=== PATIENT | female | born 1970 | race African-American/Black ===

== ENCOUNTER 2019-08-22 02:04 | Inpatient (IN) | payer OTHER ==
[~2019-08-22] VITALS: Ht 160 cm; Wt 48.6 kg
[2019-08-22 06:10] VITALS: BP 157/93
--- NOTE | 2019-08-22 06:15 | NUR ---
SCARFER OPERATORMASTER [place] NOTES PATIENT ARRIVED ON UNIT AT 0600 VIA AMBULANCE FROM [facility]. PATIENT IN STABLE CONDITION. A/O X2-3. ON ROOM AIR. TELE MONITOR READING SINUS RHYTHM, HEART RATE 99. IV PRESENT ON RIGHT WRIST, SIZE 20, INTACT & PATENT, HEP LOCKED. PATIENT IS UNCOOPERATIVE, ANXIOUS, AND ANGRY. REFUSED SKIN ASSESSMENT AND REFUSED TO SIGN BELONGINGS LIST. PATIENT ALSO REFUSES TO GIVE ANY MEDICAL INFORMATION. MEDICAL HISTORY OBTAINED FROM RECORDS. SAFETY MEASURES IN PLACE. BED LOCKED, SIDE RAILS X2, CALL LIGHT WITHIN REACH. WILL ENDORSE TO DAY SHIFT NURSE ADMISSION
--- NOTE | 2019-08-22 07:30 | NUR ---
Tele/RN Opening/New admission Received patient alert and oriented, able to responds all stimuli. Pt on ekg monitor tech Patient noticed incorporative, angry, agitated, yelling and uses inappropriate words to staff. Refused initial physical assess, past medical hx, blood draw for hep A and B, troponin, skin assess. Medical hx obtained from medical record. Safety measure in place, bed locked, side rails up x 2, call light within reach, will continue to monitor.
[2019-08-22] MEDS ORDERED: ASPI-1152 PO (07:47)
[2019-08-22] MEDS ORDERED: ATOR40TA PO (07:47)
[2019-08-22] MEDS ORDERED: ACET-2605 PO (07:47)
[2019-08-22] MEDS ORDERED: CHOL200076 PO (07:47)
[2019-08-22] MEDS ORDERED: FERR325T23 PO (07:47)
[2019-08-22] MEDS ORDERED: CLON0.3P TD (07:47)
[2019-08-22] MEDS ORDERED: QUET100T PO (07:48)
[2019-08-22] MEDS ORDERED: MULT-24 PO (07:48)
[2019-08-22] MEDS ORDERED: LISI40TA4 PO (07:48)
[2019-08-22] MEDS ORDERED: NIFE-34 PO (07:48)
[2019-08-22] MEDS ORDERED: HYDR100T27 PO (07:48)
[2019-08-22] MEDS ORDERED: SEVE800T8 PO (07:48)
[2019-08-22] MEDS ORDERED: GABA-532 PO (07:48)
[2019-08-22] MEDS ORDERED: ALBU8.5H8 IH (07:55)
[2019-08-22 08:00] VITALS: BP 157/118
[2019-08-22] MEDS ORDERED: ONDANSETRON HCL/PF 4 MG/2 ML VIAL IVP PRN (08:00)
[2019-08-22] MEDS ORDERED: NITROGLYCERIN 0.4 MG/TAB BOTTLE SL PRN (08:00)
[2019-08-22] MEDS ORDERED: ONDANSETRON 4 MG TAB.RAPDIS PO PRN (08:30)
--- NOTE | 2019-08-22 08:30 | NUR ---
Dr. Plasencia made aware pt's bp 157/118, who will place meds for bp.
[2019-08-22] MEDS: ASPIRIN 81 MG TAB.CHEW PO SCH (08:50)
[2019-08-22] MEDS: MORPHINE SULFATE INJ 2 MG/ML DISP.SYRIN IV PRN ×2 (09:48→17:35)
[2019-08-22] MEDS ORDERED: CLONIDINE HCL 0.3 MG/24H PTWK 1 EA PATCH TD SCH (10:30)
[2019-08-22] MEDS ORDERED: ALBUTEROL FS 2.5 MG/3 ML VIAL.NEB NEB PRN (10:30)
[2019-08-22] MEDS ORDERED: ACETAMINOPHEN ES 500 MG TABLET PO PRN (10:30)
[2019-08-22] MEDS ORDERED: ASPIRIN EC 81 MG TABLET.DR PO SCH (10:30)
--- NOTE | 2019-08-22 10:45 | NUR ---
All due meds at 1030 will hold by HD nurse indication.
[2019-08-22] MEDS: QUETIAPINE FUMARATE 100 MG TABLET PO SCH ×2 (11:19→17:22)
--- NOTE | 2019-08-22 12:00 | NUR ---
Patient done HD, no fever, or N/V, i9n stable condition. bp-150/ 94, p-90. Addendum: 08/22/19 at 1804 by RUDDY MCCORD RN Error
--- NOTE | 2019-08-22 12:00 | NUR ---
Patient done HD, no fever, or N/V, in stable condition. bp-150/ 94, p-90.
[2019-08-22] MEDS: GABAPENTIN 100 MG CAPSULE PO SCH ×2 (12:32→17:22)
[2019-08-22] MEDS: MULTIVITAMINS,THERAGRAN 1 UDTAB TABLET PO SCH (12:32)
[2019-08-22] MEDS: SEVELAMER CARBONATE 800 MG TABLET PO SCH ×2 (12:32→17:22)
[2019-08-22] MEDS: CHOLECALCIFEROL 1,000 UNIT TABLET (VIT D3) PO SCH (12:32)
[2019-08-22] MEDS: FERROUS SULFATE (325 MG) 325 MG/TAB TABLET PO SCH (12:32)
[2019-08-22] MEDS: LISINOPRIL (20MG) 20 MG TABLET PO SCH (13:35)
[2019-08-22] MEDS: hydrALAZINE HCL 50 MG TABLET PO SCH ×2 (14:14→21:13)
[2019-08-22 16:00] VITALS: BP 140/89
[2019-08-22] MEDS: NIFEdipine XL 60 MG TAB PO SCH (17:22)
[2019-08-22] MEDS ORDERED: ATORVASTATIN 40 MG TABLET PO SCH (18:00)
--- NOTE | 2019-08-22 18:05 | NUR ---
Tele/RN Closing note Patient in bed comfortably, c/o back pain given pain meds as prn order. NO found abnormal from job honer. Respiratory even and unlabored in room air, skin is warm to touch, intact IV site. Safety measure in place, bed locked, side rails up x 2, call light within reach, will endorse trial consultant.
[2019-08-22 20:32] VITALS: BP 151/103
[2019-08-23 02:27] VITALS: BP 148/95
[2019-08-23] MEDS: MORPHINE SULFATE INJ 2 MG/ML DISP.SYRIN IV PRN ×3 (05:24→17:31)
[2019-08-23 05:52] VITALS: BP 151/98
--- NOTE | 2019-08-23 06:26 | NUR ---
SLAB LIFTING SUPERVISOR NOTES AWAKE & RESPONSIVE. NOT IN ANY DISTRESS. NO SOB NOTED. DENIES ANY PAIN OR DISCOMFORT AT THIS TIME. ON TELE SR @ 84 WITH IV-HL PATENT & INTACT. MONITORED ACCORDINGLY. CALL LIGHT WITHIN REACH. BED IN LOWEST POSITION. SR UP X 2 FOR SAFETY. WILL ENDORSE TO NEXT SHIFT.
[2019-08-23 07:23] LABS: BASOPHILS % (AUTO) 1.2 % (0.0-2.0); EOSINOPHILS % (AUTO) 7.6 % (0.0-6.0); HEMATOCRIT 31 % (33-45); HEMOGLOBIN 9.8 g/dL (11.5-14.8); LYMPHOCYTES % (AUTO) 24.3 % (20.0-44.0); MEAN CORPUSCULAR HGB CONC 32 g/dl (31.0-36.0); MEAN CORPUSCULAR VOLUME 89 fL (82-100); MONOCYTES # (AUTO) 0.6 /CMM (0.1-1.30); MONOCYTES % (AUTO) 14.7 % (2.0-12.0); NEUTROPHILS # (AUTO) 2.2 /CMM (1.8-8.9); NEUTROPHILS % (AUTO) 52.2 % (43.0-81.0); PLATELET COUNT (AUTO) 249 /CMM (150-450); RED BLOOD CELL COUNT(AUTO) 3.46 MIL/uL (4.0-5.2); WHITE BLOOD COUNT (AUTO) 4.3 K/uL (4.3-11.0)
--- NOTE | 2019-08-23 07:48 | NUR ---
TELE/RN OPENING NOTES RECEIVED PATIENT AWAKE & RESPONSIVE. NOT IN ANY DISTRESS. NO SOB NOTED. DENIES ANY PAIN OR DISCOMFORT AT THIS TIME. ON TELE SR 84 WITH IV-HL PATENT & INTACT. MONITORED ACCORDINGLY. CALL LIGHT WITHIN REACH. BED IN LOWEST POSITION. SR UP X 2 FOR SAFETY. WILL CONTINUE TO MONITOR.
[2019-08-23 07:57] LABS: CALCIUM, SERUM 8.1 mg/dL (8.5-10.1); MAGNESIUM 2.1 mg/dL (1.8-2.4); PHOSPHORUS 5.8 mg/dL (2.5-4.9); POTASSIUM 4.6 mmol/L (3.5-5.1)
[2019-08-23 08:00] VITALS: BP 170/102
[2019-08-23] MEDS: QUETIAPINE FUMARATE 100 MG TABLET PO SCH ×2 (09:00→16:50)
[2019-08-23] MEDS: MULTIVITAMINS,THERAGRAN 1 UDTAB TABLET PO SCH (09:00)
[2019-08-23] MEDS: FERROUS SULFATE (325 MG) 325 MG/TAB TABLET PO SCH (09:00)
[2019-08-23] MEDS: GABAPENTIN 100 MG CAPSULE PO SCH ×3 (09:00→16:50)
[2019-08-23] MEDS: SEVELAMER CARBONATE 800 MG TABLET PO SCH ×3 (09:01→16:50)
[2019-08-23] MEDS: NIFEdipine XL 60 MG TAB PO SCH ×2 (09:01→16:50)
[2019-08-23] MEDS: CHOLECALCIFEROL 1,000 UNIT TABLET (VIT D3) PO SCH (09:01)
[2019-08-23] MEDS: ASPIRIN 81 MG TAB.CHEW PO SCH (09:02)
[2019-08-23] MEDS: hydrALAZINE HCL 50 MG TABLET PO SCH ×3 (09:02→20:50)
[2019-08-23] MEDS: LISINOPRIL (20MG) 20 MG TABLET PO SCH (09:02)
--- NOTE | 2019-08-23 09:50 | NUR ---
TELE/RN NOTES CREATININE 8.0 BUN 35 MD AND CHARGE NURSE IS AWARE. PATIENT IS FOR DIALYSIS TODAY.
[2019-08-23 16:00] VITALS: BP 167/108
[2019-08-23] MEDS ORDERED: ATORVASTATIN 40 MG TABLET PO SCH (18:00)
--- NOTE | 2019-08-23 18:47 | NUR ---
TELE/RN CLOSING NOTES PATIENT IS LYING ON THE BED COMFORTABLY ALERT AND ORIENTED X4. DENIES PAIN AT THIS TIME. NO RESPIRATORY DISTRESS AND NO SOB NOTED. STILL ON TELE MONITOR SINS RHYTHM 95B/MIN. AV SHUNT RIGHT CHEST, RIGHT WRIST 20 G HP INTACT AND PATENT. SEEN AND EXAMINED BY MD WITH ORDER MADE AND CARRIED OUT. ALL DUE MEDS WAS ADMINISTERED. KEPT PATIENT DRY AND COMFORTABLE THE WHOLE SHIFT. SAFETY PRECAUTION WAS IN PLACE BED IN LOWEST POSITION, SIDE RAILS UP X2. CALL LIGHT WITHIN REACH. WILL ENDORSED TO FINE ARTS INSTRUCTOR FOR LEVAR.
--- NOTE | 2019-08-23 19:35 | NUR ---
TELE/RN OPENING NOTES RECEIVED PATIENT IN BED,CAN RESPOND AND MAKE EYE CONTACT, RESPIRATIONS EVEN AND UNLABORED, CAN VERBALIZE NEEDS, NO GUARDING OR GRIMACE NOTED AT THIS TIME, RESPIRATIONS EVEN AND UNLABORED, SKIN WARM TO TOUCH, BED LOCKED, CALL LIGTHS WITHIN REACH, RECEIVED ENDORSEMENT FROM AM RN FOR LEVAR. S/P HEMODIALYSIS TODAY,MONITOIRNG FOR ANY CHANGES, ON RELE MONITOR AT SR.
--- NOTE | 2019-08-23 19:38 | NUR ---
TELE/RN NOTES PATIENTS AMBULATORY, WITH AVSHUNT AND RIGHT UPPER CHEST, AND WITH RIGHT WRIST GAUGE 20.
[2019-08-23 20:00] VITALS: BP 154/104
[2019-08-23] MEDS: CARVEDILOL 6.25 MG TABLET PO SCH (20:51)
--- NOTE | 2019-08-23 21:30 | NUR ---
TELE/RN NOTES PATIENT PROVIDED SOME SNACKS AND ABLE TO TOLERATE WELL.REFUSE TO HAVE SPONGE BATH OR HYGIENE CARE, PATIENT ABLE TO DO SELF CARE/ MONITORED.
[2019-08-24] VITALS: BP 129/84
[2019-08-24 00:01] VITALS: BP 129/84
[2019-08-24] MEDS: MORPHINE SULFATE INJ 2 MG/ML DISP.SYRIN IV PRN (01:45)
--- NOTE | 2019-08-24 01:54 | NUR ---
TELE/RN NOTES PATIENT AWAKEN FROM SLEEP WITH CHEST PAIN 10/10. VITAL SIGNS CHECK BP AT 126/78. O2 SAT AT 98%, TELE MONITOR AT SR 88. MORPHINE 1MG/0.5ML IVP ADMINISTERED TOLERATED WELL. RECHECK IN 15 MINUTES, PATIENT REPORTED PAIN AT 6/10 AND ASK FOR SOME SNACKS,AND HOT PACK. TO MONITOR.
--- NOTE | 2019-08-24 02:17 | NUR ---
TELE/RN NOTES PATIENT REPORTED NO MORE CHEST PAIN, WENT BACK TO SLEEP.
--- NOTE | 2019-08-24 06:22 | NUR ---
327-2 TELE/RN CLOSING NOTES PATIENT ABLE TO SLEEP DURING THE NIGHT, VERBALIZED NEEDS AT ALL TIMES. ATTENDED TO ALL NEEDS, KEPT COMFORTABLE, TOLERATED MEDICATION. SSKIN WARM TO TOUCH. RESPIRATIONS EVEN AND UNLABORED. PROVIDED FLUIDS AND SNACKS. WILL ENDORSE TO AM RN FOR LEVAR. BED LOCKED, CALL LIGHTS WITHIN REACH.
--- NOTE | 2019-08-24 07:32 | NUR ---
CASE FOLDER OPENING NOTES RECEIVED PATIENT AWAKE IN BED IN NO ACUTE SIGNS OF DISTRESS. A/O X3. VERBALLY RESPONSIVE, DENIES PAIN OR ANY DISCOMFORTS AT THIS TIME. ON ROOM AIR, RESPIRATIONS EVEN AND UNLABORED. TELE READING SHOWS SR WITH HR OF 78 AT THIS TIME, NO C/O CARDIAC DISTRESS VOICED AT THIS TIME. HD CATH ON RIGHT UPPER CHEST IN PLACE WITH DRESSING C/D/I. IV SL ON RIGHT WRIST G#20 INTACT AND PATENT. BED LOCKED AND IN LOWEST POSITION WITH DR UP X2. CALL LIGHTS WITHIN REACH. WILL CONTINUE TO MONITOR.
[2019-08-24 08:00] VITALS: BP 155/101
[2019-08-24] MEDS: FERROUS SULFATE (325 MG) 325 MG/TAB TABLET PO SCH (08:16)
[2019-08-24] MEDS: CHOLECALCIFEROL 1,000 UNIT TABLET (VIT D3) PO SCH (08:16)
[2019-08-24] MEDS: SEVELAMER CARBONATE 800 MG TABLET PO SCH ×2 (08:16→12:20)
[2019-08-24] MEDS: GABAPENTIN 100 MG CAPSULE PO SCH ×2 (08:16→12:20)
[2019-08-24] MEDS: ASPIRIN 81 MG TAB.CHEW PO SCH (08:17)
[2019-08-24] MEDS: QUETIAPINE FUMARATE 100 MG TABLET PO SCH (08:17)
[2019-08-24] MEDS: MULTIVITAMINS,THERAGRAN 1 UDTAB TABLET PO SCH (08:17)
[2019-08-24] MEDS: hydrALAZINE HCL 50 MG TABLET PO SCH ×3 (08:19→13:19)
[2019-08-24] MEDS: CARVEDILOL 6.25 MG TABLET PO SCH ×2 (08:20→10:59)
[2019-08-24] MEDS: LISINOPRIL (20MG) 20 MG TABLET PO SCH ×2 (08:20→11:00)
[2019-08-24] MEDS: NIFEdipine XL 60 MG TAB PO SCH ×2 (08:21→11:00)
--- NOTE | 2019-08-24 08:21 | NUR ---
RN NOTES PT BLOOD PRESSURE 155/101, DIALYSIS NURSE IN ROOM TO DO HEMODIALYSIS AND SAID NOT TO GIVE BP MEDS THIS MORNING COZ HER BP WILL DROP DURING HD. WILL CONTINUE TO MONITOR.
--- NOTE | 2019-08-24 08:53 | NUR ---
RN NOTES PT JUST STARTED HEMODIALYSIS VIA RIGHT UPPER CHEST HD CATH. V/S PRE HD: 158/106 P 88, R 18 AND T 98.2F. WILL CONTINUE TO MONITOR.
--- NOTE | 2019-08-24 11:03 | NUR ---
RN NOTES PT S/P HD WITH NO OUTPUT NOTED. V/S S/P HD; BP 156/106, P 91, R 18 AND T 98f. BP MEDS THAT WAS NOT ADMINISTERED AT 0900 JUST ADMINISTERED S/P HD. WILL CONTINUE TO MONITOR
[2019-08-24 13:19] VITALS: BP 142/84
--- NOTE | 2019-08-24 15:53 | NUR ---
RN DISCHARGED NOTES PT DISCHARGED TO [facility] IN STABLE. A/O X4. ABLE TO MAKE NEEDS KNOWN. ALL NEEDS AND CARE PROVIDED WELL. V/S TAKEN AND RECORDED. PT REFUSED SKIN ASSESSMENT. ALL BELONGINGS ACCOUNTED FOR AND SIGNED FORM. IV ACCESS ON RIGHT WRIST REMOVED WITH NO ACTIVE BLEEDING NOTED, DRY DRESSING APPLIED. NAME ARMBAND REMOVED. HD CATH IN PLACE TO RIGHT UPPER CHEST WITH DRESSING C/D/I. HEALTH/ TEACHINGS AND DISCHARGE INSTRUCTIONS GIVEN, PT VERBALIZED UNDERSTANDING. PT LEFT UNIT AT 1505 AMBULATORY ACCOMPANIED BY RN [facility] TO LOBBY WITH FRIEND NAMED MANNY WAITING OUTSIDE THE LOBBY TO TAKE PT TO [facility] AT [address] [facility] [place] [address]. PT DECLINED TO TAKE TAP CARD. MD AND CHARGE NURSE AWARE OF DISCHARGE.
== END 2019-08-24 15:30 | disposition home or self-care (01) | DRG 194 ==
LOC: TELE 05:47 → MED 08-24 08:41
PROVIDERS: ADMIT Internal Medicine; ATTEND Internal Medicine
PROC: 5A1D70Z Performance of Urinary Filtration, Intermittent, Less than 6 Hours Per Day (ICD-10-PCS; principal; 2019-08-22)
DX: I13.2 Hypertensive heart and chronic kidney disease with heart failure and with stage 5 chronic kidney disease, or end stage renal disease (principal); I21.A1 Myocardial infarction type 2; N18.6 End stage renal disease; I16.1 Hypertensive emergency; I50.32 Chronic diastolic (congestive) heart failure; Z99.2 Dependence on renal dialysis; I25.10 Atherosclerotic heart disease of native coronary artery without angina pectoris; F14.10 Cocaine abuse, uncomplicated; Z91.14 Patient's other noncompliance with medication regimen; E78.5 Hyperlipidemia, unspecified; J45.909 Unspecified asthma, uncomplicated; Z59.0 Homelessness; F17.200 Nicotine dependence, unspecified, uncomplicated
CPT/HCPCS: 36415; 80048-TC; 80061-TC; 83735-TC; 84100-TC; 84484-TC; 84703-TC; 85025-TC; 86706; 87081-TC; 87340; 90935-TC; 93307-TC; G0378; J2270

== ENCOUNTER 2019-09-07 03:55 | Inpatient (IN) | payer OTHER ==
[~2019-09-07] VITALS: Ht 160 cm; Wt 54.0 kg
[~2019-09-07 03:55] MED LIST: ACET-2605 PO; ALBU8.5H8 IH; ASPI-1152 PO; ATOR40TA PO; CHOL200076 PO; CLON0.3P TD; FERR325T23 PO; GABA-532 PO; HYDR100T27 PO; LISI40TA4 PO; MULT-24 PO; NIFE-34 PO; QUET100T PO; SEVE800T8 PO
[2019-09-07] MEDS ORDERED: NITROGLYCERIN 0.4 MG/TAB BOTTLE ONE (04:11)
--- NOTE | 2019-09-07 04:20 | NUR ---
PT BIBBOYFRIEND C/O MID STERNAL RADIATING TO R CHEST AND R ARM SINCE 3AM. PT AAOX4, RR EVEN AND UNLABORED ON ROOM AIR W/ NAD NOTED. PT STATES PAIN WORSENS UPON BREATHING. PT CONNECTED TO THE SEED LABORATORY ASSISTANT AND POX
--- NOTE | 2019-09-07 04:22 | NUR ---
PT REFUSED IV
--- NOTE | 2019-09-07 04:25 | NUR ---
2ND DOSE OF NITROGLYCERIN GIVEN SL. BP NOTED 206/143
--- NOTE | 2019-09-07 04:26 | NUR ---
ENVIRONMENTAL ENGINEERING PROFESSOR AT BEDSIDE FOR BLOOD DRAW
[2019-09-07] MEDS ORDERED: NITROGLYCERIN 0.4 MG/TAB BOTTLE SL ONE (04:30)
[2019-09-07 04:31] LABS: BASOPHILS % (AUTO) 1.3 % (0.0-2.0); HEMATOCRIT 33 % (33-45); HEMOGLOBIN 10.5 g/dL (11.5-14.8); MEAN CORPUSCULAR HGB CONC 32 g/dl (31.0-36.0); MEAN CORPUSCULAR VOLUME 88 fL (82-100); MONOCYTES # (AUTO) 0.3 /CMM (0.1-1.30); MONOCYTES % (AUTO) 8.8 % (2.0-12.0); NEUTROPHILS # (AUTO) 2.1 /CMM (1.8-8.9); NEUTROPHILS % (AUTO) 58.9 % (43.0-81.0); PLATELET COUNT (AUTO) 219 /CMM (150-450); RED BLOOD CELL COUNT(AUTO) 3.73 MIL/uL (4.0-5.2); WHITE BLOOD COUNT (AUTO) 3.6 K/uL (4.3-11.0)
--- NOTE | 2019-09-07 04:40 | NUR ---
3RD DOSE OF NITROGLYCERIN GIVEN SL BP 224/147
[2019-09-07 04:43] LABS: CALCIUM, SERUM 7.5 mg/dL (8.5-10.1); POTASSIUM 5.1 mmol/L (3.5-5.1)
--- NOTE | 2019-09-07 04:48 | NUR ---
XRAY AT BEDSIDE
[2019-09-07 04:50] LABS: CREATININE 13.5 mg/dL (0.6-1.3)
--- NOTE | 2019-09-07 05:40 | NUR ---
CALLED DOMINIC INFORMATION SECURITY DIRECTOR
--- NOTE | 2019-09-07 05:40 | NUR ---
ER DOC ON PHONE WITH APPRENTICE LINEMAN THIRD STEP DR. ZAVALA
[2019-09-07] MEDS ORDERED: hydrALAZINE HCL IV 20 MG VIAL ONE (06:11)
[2019-09-07] MEDS ORDERED: MISCELLANEOUS MED 1 EA EA PO PRN (06:30)
[2019-09-07] MEDS ORDERED: Z GUARD REMEDY 2 OZ OINT TP PRN (06:30)
[2019-09-07] MEDS ORDERED: ONDANSETRON HCL/PF 4 MG/2 ML VIAL IVP PRN (06:30)
[2019-09-07] MEDS ORDERED: CLONIDINE HCL 0.1 MG TABLET PO PRN (06:30)
[2019-09-07] MEDS ORDERED: ALBUTEROL SULFATE INH 18 GM HFA.AER.AD IH PRN (06:30)
[2019-09-07] MEDS ORDERED: MAGNESIUM HYDROXIDE 30 ML UDC PO PRN (06:30)
[2019-09-07] MEDS ORDERED: hydrALAZINE HCL IV 20 MG VIAL IV ONE (06:30)
[2019-09-07] MEDS ORDERED: ACETAMINOPHEN 325 MG TABLET PO PRN (06:30)
[2019-09-07] MEDS ORDERED: MAG HYDROX/AL HYDROX/SIMETH 30 ML UDC PO PRN (06:30)
[2019-09-07] MEDS ORDERED: NITROGLYCERIN PACKET 1 GM PACKET TOP ONE (06:30)
[2019-09-07] MEDS ORDERED: hydrALAZINE HCL IV 20 MG VIAL IV PRN (06:30)
--- NOTE | 2019-09-07 06:43 | NUR ---
BED 111-2
--- NOTE | 2019-09-07 06:49 | NUR ---
REPORT GIVEN TO ANA JENKINS FOR LEVAR
--- NOTE | 2019-09-07 07:34 | NUR ---
PT WAS TRANSFERRED TO [facility] UNDER ACLS
--- NOTE | 2019-09-07 07:48 | NUR ---
RN OPENING NOTES RECEIVED PATIENT IN BED, AWAKE, VERBALLY RESPONSIVE AND ABLE TO MAKE NEEDS KNOWN. COMPLAINT OF PAIN ON HER R CHEST BUT PER PATIENT TOLERABLE. ON ROOM AIR SATURATING WELL. NO SOB NOTED. IV ACCESS ON R FA #22. PATIENT DOESN'T WANT ME TO FLUSHED HER IV ACCESS. SAFETY MEASURES IN PLACED , CALL LIGHT WITHIN REACH. WILL CONTINUE TO MONITOR.
[2019-09-07 08:00] VITALS: BP 193/127
--- NOTE | 2019-09-07 08:34 | NUR ---
RN NOTES PATIENT REFUSED TO BE CHECK FOR ANY SKIN ISSUES. PATIENT STATED THAT SHE DOESN'T HAVE ANY OPEN WOUND OR SKIN PROBLEM. CHARGE NURSE MADE AWARE
[2019-09-07] MEDS: GABAPENTIN 100 MG CAPSULE PO SCH ×3 (09:16→16:34)
[2019-09-07] MEDS: SEVELAMER CARBONATE 800 MG TABLET PO SCH ×3 (09:17→16:34)
[2019-09-07] MEDS: QUETIAPINE FUMARATE 100 MG TABLET PO SCH ×2 (09:17→16:34)
[2019-09-07] MEDS: CHOLECALCIFEROL 1,000 UNIT TABLET (VIT D3) PO SCH (09:17)
[2019-09-07] MEDS: ASPIRIN EC 81 MG TABLET.DR PO SCH (09:17)
[2019-09-07] MEDS: MULTIVITAMINS,THERAGRAN 1 UDTAB TABLET PO SCH (09:17)
[2019-09-07] MEDS: FERROUS SULFATE (325 MG) 325 MG/TAB TABLET PO SCH (09:18)
[2019-09-07] MEDS: ATORVASTATIN 40 MG TABLET PO SCH (09:18)
[2019-09-07] MEDS: LISINOPRIL (20MG) 20 MG TABLET PO SCH (09:26)
[2019-09-07] MEDS: NIFEdipine XL 60 MG TAB PO SCH ×2 (09:26→16:34)
[2019-09-07] MEDS: hydrALAZINE HCL 50 MG TABLET PO SCH ×3 (09:32→16:34)
--- NOTE | 2019-09-07 15:10 | NUR ---
RN NOTES PATIENT HAD DIALYSIS TODAY AND OUTPUT WAS 2L
[2019-09-07] MEDS: HYDROCODONE/APAP 5/325MG 1 EACH TABLET PO PRN (15:50)
[2019-09-07 16:00] VITALS: BP 145/100
--- NOTE | 2019-09-07 19:41 | NUR ---
RN CLOSING NOTES PATIENT IN BED RESTING COMFORTABLY, IN ROOM AIR SATURATING WELL. NO SOB NOTED. IN NO APPARENT DISTRESS NOTED. PATIENT REFUSED TO HAVE HER IV ACCESS FLUSH. RN CLOSING NOTES .SAFETY MEASURES IN PLACED. KEPT CLEANED AND DRY. ALL NEEDS MET. ENDORSED TO PM RN FOR LEVAR.
[2019-09-07 20:00] VITALS: BP 142/79
[2019-09-08 01:23] VITALS: BP 142/79
[2019-09-08 04:00] VITALS: BP 151/99
[2019-09-08 07:17] LABS: BASOPHILS # (AUTO) 0.1 /CMM (0.0-0.2); BASOPHILS % (AUTO) 1.4 % (0.0-2.0); EOSINOPHILS % (AUTO) 3.4 % (0.0-6.0); HEMATOCRIT 33 % (33-45); HEMOGLOBIN 10.6 g/dL (11.5-14.8); LYMPHOCYTES # (AUTO) 1.4 /CMM (0.8-4.8); LYMPHOCYTES % (AUTO) 30.8 % (20.0-44.0); MEAN CORPUSCULAR HGB CONC 32 g/dl (31.0-36.0); MEAN CORPUSCULAR VOLUME 87 fL (82-100); MONOCYTES # (AUTO) 0.5 /CMM (0.1-1.30); MONOCYTES % (AUTO) 11.5 % (2.0-12.0); NEUTROPHILS # (AUTO) 2.3 /CMM (1.8-8.9); NEUTROPHILS % (AUTO) 52.9 % (43.0-81.0); PLATELET COUNT (AUTO) 215 /CMM (150-450); WHITE BLOOD COUNT (AUTO) 4.4 K/uL (4.3-11.0)
[2019-09-08 07:52] LABS: CALCIUM, SERUM 7.2 mg/dL (8.5-10.1); MAGNESIUM 2.1 mg/dL (1.8-2.4); POTASSIUM 4.5 mmol/L (3.5-5.1)
[2019-09-08 08:00] VITALS: BP 153/101
[2019-09-08 08:24] LABS: CREATININE 10.7 mg/dL (0.6-1.3)
[2019-09-08] MEDS: ATORVASTATIN 40 MG TABLET PO SCH (08:59)
[2019-09-08] MEDS: CHOLECALCIFEROL 1,000 UNIT TABLET (VIT D3) PO SCH (08:59)
[2019-09-08] MEDS: SEVELAMER CARBONATE 800 MG TABLET PO SCH ×3 (08:59→16:56)
[2019-09-08] MEDS: NIFEdipine XL 60 MG TAB PO SCH ×2 (08:59→16:56)
[2019-09-08] MEDS: MULTIVITAMINS,THERAGRAN 1 UDTAB TABLET PO SCH (08:59)
[2019-09-08] MEDS: FERROUS SULFATE (325 MG) 325 MG/TAB TABLET PO SCH (08:59)
[2019-09-08] MEDS: GABAPENTIN 100 MG CAPSULE PO SCH ×3 (08:59→16:56)
[2019-09-08] MEDS: QUETIAPINE FUMARATE 100 MG TABLET PO SCH ×2 (08:59→16:56)
[2019-09-08] MEDS: HYDROCODONE/APAP 5/325MG 1 EACH TABLET PO PRN ×3 (09:00→23:30)
[2019-09-08] MEDS: ASPIRIN EC 81 MG TABLET.DR PO SCH (09:00)
[2019-09-08] MEDS: hydrALAZINE HCL 50 MG TABLET PO SCH ×3 (09:00→16:56)
[2019-09-08] MEDS: LISINOPRIL (20MG) 20 MG TABLET PO SCH (09:00)
--- NOTE | 2019-09-08 10:26 | NUR ---
RN OPENING NOTE: RECEIVED PATIENT IN BED THIS MORNING. PATIENT IS ALERT X3, RESPONDS APPROPRIATELY. PATIENT ON ROOM AIR, NO SIGNS OF RESPIRATORY DISTRESS NOTED. NO SIGNS OF ACUTE DISTRESS NOTED. PATIENT DENIES SOB/CHEST PAIN. C/O 8/10 GENERALIZED PAIN. #22 ON RFA, C/D/I, FLUSHED WELL, NO SIGNS OF COMPLICATIONS NOTED. SAFETY MEASURES IMPLEMENTED, BED IN LOWEST POSITION, LOCKED, SIDE RAILS UP X2, CALL LIGHT WITHIN REACH. WILL CONTINUE TO MONITOR PATIENT FOR CHANGES. Addendum: 09/08/19 at 1029 by BRAN SAM RN MORNING ASSESSMENT DONE AT 0740
--- NOTE | 2019-09-08 13:08 | NUR ---
DR GEORGE AWARE OF CREATININE LEVELS. TRENDING DOWN FROM PREVIOUS LAB RESULTS.
--- NOTE | 2019-09-08 14:47 | NUR ---
PATIENT IS VERY AGITATED, PACING THE HALLS, SLAMMING HER BATHROOM DOOR. WENT IN HER ROOM TO ATTAIN TO HER NEEDS. PATIENT IS BEING VERBALLY AGGRESSIVE TELLING ME TO GET THE HELL OUT OF HER ROOM. INFORMED HER THAT SHE IS ON A RENAL DIET AND KITCHEN WONT ALLOW ADDITIONAL FOOD WHEN I ASKED, AND PATIENT WAS NOT HAPPY WITH HER ANSWER. GAVE HER SNACKS BEDSIDE BUT PATIENT STILL SEEMS TO BE UNHAPPY.
[2019-09-08 16:00] VITALS: BP 153/93
--- NOTE | 2019-09-08 18:31 | NUR ---
RN CLOSING NOTE: PATIENT IS CURRENTLY SLEEPING IN BED, EASILY AROUSE. NO SIGNS OF RESPIRATORY DISTRESS NOTED. NO SIGNS OF ACUTE DISTRESS NOTED. SAFETY MEASURES IMPLEMENTED, BED IN LOWEST POSITION, LOCKED, SIDE RAILS UP X2, CALL LIGHT WITHIN REACH. WILL ENDORSE TO ONCOMING SHIFT RN FOR CONTINUITY OF CARE.
--- NOTE | 2019-09-08 19:30 | NUR ---
RN OPENING NOTES RECEIVED PATIENT RESTING IN BED, EASILY AROUSABLE. A/OX4. NO SIGNS OF DISTRESS OR DISCOMFORT. BREATHING EVEN AND UNLABORED. IV ACCES IN RFA, PATENT AND INTACT, NO SIGNS OF REDNESS OR INFILTRATIONS. HAS RCW PERMACATH INTACT. BED IN LOW LOCKED POSITION WITH SIDE RAILS X2. CALL LIGHT WITHIN REACH. WILL CONTINUE TO MONITOR.
[2019-09-08 20:00] VITALS: BP 129/73
--- NOTE | 2019-09-09 02:02 | NUR ---
RN NOTES PATIENT AWOKE COMPLAINING OF R MID CHEST PAIN 10/10, NON RADIATING, SHARP, TENDER TO TOUCH AND FELT WHEN INHALING. BP 128/82 P 94 02 99% RR20. NOTIFIED JESSICA POULTRY FARM WORKER, WITH NEW ORDERS GIVEN FOR TROPONIN AND EKG. WILL CARRYOUT ORDERS AND CONTINUE TO MONITOR.
[2019-09-09 04:00] VITALS: BP 134/84
--- NOTE | 2019-09-09 06:34 | NUR ---
RN CLOSING PATIENT RESTING IN BED, EASILY AROUSABLE WITH HD NURSE AT BEDSIDE CURRENTLY RECEIVING HD. A/OX3. NO SIGNS OF DISTRESS OR DISCOMFORT. BREATHING EVEN AND UNLABORED. IV ACCES IN RFA, PATENT AND INTACT, NO SIGNS OF REDNESS OR INFILTRATIONS. HAS RCW HD CATH INTACT. ALL NEEDS MET. NO SIGNIFICANT CHANGES THROUGH THE NIGHT. BED IN LOW LOCKED POSITION WITH SIDE RAILS X2. CALL LIGHT WITHIN REACH. WILL ENDORSE TO AM SHIFT FOR LEVAR.
--- NOTE | 2019-09-09 07:48 | NUR ---
MS RN OPENING NOTES RECEIVED PATIENT IN BED, AWAKE, A/O X3. PATIENT IS ON ROOM AIR BREATHING EVENLY AND WITH NO SIGNS OF ACUTE DISTRESS OR SOB PRESENT AT THIS TIME. PATIENT IS CURRENTLY RECEIVING HD. RFA IV GAUGE # 22 PRESENT AND INTACT, FLUSHING WELL. SAFETY PRECAUTIONS IN PLACE; BED IN LOW POSITION AND LOCKED, RAILS UP X2, CALL LIGHT WITHIN REACH. WILL CONTINUE TO MONITOR PATIENT.
[2019-09-09 08:00] VITALS: BP 126/55
[2019-09-09] MEDS ORDERED: ALTEPLASE CATHFLO 2 MG/VIAL IV ONE (08:00)
[2019-09-09] MEDS: NIFEdipine XL 60 MG TAB PO SCH ×2 (09:00→16:54)
[2019-09-09] MEDS: hydrALAZINE HCL 50 MG TABLET PO SCH ×3 (09:00→16:54)
[2019-09-09] MEDS: LISINOPRIL (20MG) 20 MG TABLET PO SCH (09:00)
[2019-09-09] MEDS: CHOLECALCIFEROL 1,000 UNIT TABLET (VIT D3) PO SCH (09:12)
[2019-09-09] MEDS: MULTIVITAMINS,THERAGRAN 1 UDTAB TABLET PO SCH (09:12)
[2019-09-09] MEDS: ASPIRIN EC 81 MG TABLET.DR PO SCH (09:12)
[2019-09-09] MEDS: SEVELAMER CARBONATE 800 MG TABLET PO SCH ×3 (09:12→16:53)
[2019-09-09] MEDS: FERROUS SULFATE (325 MG) 325 MG/TAB TABLET PO SCH (09:12)
[2019-09-09] MEDS: QUETIAPINE FUMARATE 100 MG TABLET PO SCH ×2 (09:12→16:54)
[2019-09-09] MEDS: GABAPENTIN 100 MG CAPSULE PO SCH ×3 (09:13→16:53)
[2019-09-09] MEDS: ATORVASTATIN 40 MG TABLET PO SCH (09:13)
--- NOTE | 2019-09-09 09:17 | NUR ---
MS RN NOTES BP MEDS HELD DUE TO THE PATIENT BEING AFTER HD AND DIASTOLIC PRESSURE LOW. BP 126/55 HR 75 WILL CONTINUE TO MONITOR PATIENT
[2019-09-09] MEDS: HYDROCODONE/APAP 5/325MG 1 EACH TABLET PO PRN ×2 (09:53→19:58)
--- NOTE | 2019-09-09 09:53 | NUR ---
MS RN NOTES PATIENT REPORTS PAIN 9/10 IN HER RIGHT UPPER CHEST. IT IS EXACERBATED WITH ADLS AND COUGHING. ASKING FOR PAIN MEDICATION. PRN NORCO ADMINISTERED. WILL REASSESS SOON.
[2019-09-09 16:00] VITALS: BP 138/83
[2019-09-09 16:57] VITALS: BP 138/83
--- NOTE | 2019-09-09 18:52 | NUR ---
MS RN CLOSING NOTES PATIENT IN BED, AWAKE, A/O X4 AND WATCHING TV. PATIENT IS ON ROOM AIR BREATHING EVENLY AND WITH NO SIGNS OF ACUTE DISTRESS OR SOB PRESENT AT THIS TIME. PATIENR TOLERATED HD WELL AND 1500 MLS WERE REMOVED. RFA IV GAUGE # 22 PRESENT AND INTACT, FLUSHING WELL. ALL NEEDS ATTENDED TO THROUGHOUT THE DAY. SAFETY PRECAUTIONS IN PLACE; BED IN LOW POSITION AND LOCKED, RAILS UP X2, CALL LIGHT WITHIN REACH. ENDORSE TO DISTRICT COURT ADMINISTRATOR NURSE.
[2019-09-09 20:00] VITALS: BP 141/87
[2019-09-10 04:00] VITALS: BP 150/104
[2019-09-10] MEDS: HYDROCODONE/APAP 5/325MG 1 EACH TABLET PO PRN (04:39)
--- NOTE | 2019-09-10 04:43 | NUR ---
clonidine administered for sbp of 150, norco administered for gen pain rated 6/10 per patient request.
[2019-09-10 06:45] LABS: BASOPHILS % (AUTO) 0.7 % (0.0-2.0); EOSINOPHILS % (AUTO) 3.7 % (0.0-6.0); HEMATOCRIT 31 % (33-45); HEMOGLOBIN 9.7 g/dL (11.5-14.8); LYMPHOCYTES # (AUTO) 1.4 /CMM (0.8-4.8); LYMPHOCYTES % (AUTO) 25.2 % (20.0-44.0); MEAN CORPUSCULAR HGB CONC 31 g/dl (31.0-36.0); MEAN CORPUSCULAR VOLUME 88 fL (82-100); MONOCYTES # (AUTO) 0.9 /CMM (0.1-1.30); MONOCYTES % (AUTO) 16.8 % (2.0-12.0); NEUTROPHILS # (AUTO) 2.9 /CMM (1.8-8.9); NEUTROPHILS % (AUTO) 53.6 % (43.0-81.0); PLATELET COUNT (AUTO) 165 /CMM (150-450); WHITE BLOOD COUNT (AUTO) 5.5 K/uL (4.3-11.0)
[2019-09-10 07:10] LABS: CALCIUM, SERUM 8.7 mg/dL (8.5-10.1); MAGNESIUM 2.1 mg/dL (1.8-2.4); PHOSPHORUS 5.2 mg/dL (2.5-4.9); POTASSIUM 5.1 mmol/L (3.5-5.1)
[2019-09-10 07:19] LABS: CREATININE 9.4 mg/dL (0.6-1.3)
--- NOTE | 2019-09-10 07:38 | NUR ---
MS RN OPENING NOTE RECEIVED BEDSIDE REPORT. PT ASLEEP IN BED, ON ROOM AIR, SATURATING WELL, RESPIRATIONS EVEN AND UNLABORED, NO SIGNS OF RESPIRATORY DISTRESS NOTED. IV SITE ON RIGHT FOREARM G 22 INTACT, PATENT WITH HEP LOCK IN PLACE. BED IN LOW POSITION, LOCKED, CALL LIGHT WITHIN REACH.
[2019-09-10 07:58] LABS: EOSINOPHILS % (MANUAL) 2 % (0-4); LYMPHOCYTES % (MANUAL) 29 % (16-48); MONOCYTES % (MANUAL) 16 % (0-11.0); NEUTROPHILS % (MANUAL) 53 (42-76)
[2019-09-10 08:00] VITALS: BP 138/101
[2019-09-10] MEDS: CHOLECALCIFEROL 1,000 UNIT TABLET (VIT D3) PO SCH (08:33)
[2019-09-10] MEDS: FERROUS SULFATE (325 MG) 325 MG/TAB TABLET PO SCH (08:33)
[2019-09-10] MEDS: QUETIAPINE FUMARATE 100 MG TABLET PO SCH (08:33)
[2019-09-10] MEDS: hydrALAZINE HCL 50 MG TABLET PO SCH (08:33)
[2019-09-10] MEDS: NIFEdipine XL 60 MG TAB PO SCH (08:33)
[2019-09-10] MEDS: SEVELAMER CARBONATE 800 MG TABLET PO SCH (08:33)
[2019-09-10] MEDS: ATORVASTATIN 40 MG TABLET PO SCH (08:33)
[2019-09-10] MEDS: GABAPENTIN 100 MG CAPSULE PO SCH (08:33)
[2019-09-10 08:34] VITALS: BP 138/101
[2019-09-10] MEDS: LISINOPRIL (20MG) 20 MG TABLET PO SCH (08:34)
[2019-09-10] MEDS: ASPIRIN EC 81 MG TABLET.DR PO SCH (08:34)
[2019-09-10] MEDS: MULTIVITAMINS,THERAGRAN 1 UDTAB TABLET PO SCH (08:34)
--- NOTE | 2019-09-10 08:50 | NUR ---
completed cssr reassessment. pt denies any SI at this time or in the past.
--- NOTE | 2019-09-10 11:20 | NUR ---
removed iv site from right forearm. dressing applied. provided pt with bus token card.
--- NOTE | 2019-09-10 11:29 | NUR ---
pt left unit in stable condition. all belongings accounted for, discharge paperwork signed and explained.
[2019-09-12] MEDS ORDERED: CLONIDINE HCL 0.3 MG/24H PTWK 1 EA PATCH TD SCH (06:30)
== END 2019-09-10 11:30 | disposition home or self-care (01) | DRG 194 ==
LOC: ER 03:57 → TELE1 06:49 → MEDSG1 10:22
PROVIDERS: ADMIT Internal Medicine; ATTEND Internal Medicine
PROC: 5A1D70Z Performance of Urinary Filtration, Intermittent, Less than 6 Hours Per Day (ICD-10-PCS; principal; 2019-09-07)
DX: I13.2 Hypertensive heart and chronic kidney disease with heart failure and with stage 5 chronic kidney disease, or end stage renal disease (principal); N18.6 End stage renal disease; J45.909 Unspecified asthma, uncomplicated; Z99.2 Dependence on renal dialysis; D63.1 Anemia in chronic kidney disease; Z79.899 Other long term (current) drug therapy; I50.33 Acute on chronic diastolic (congestive) heart failure; E78.5 Hyperlipidemia, unspecified; I25.10 Atherosclerotic heart disease of native coronary artery without angina pectoris; Z59.0 Homelessness; Z91.19 Patient's noncompliance with other medical treatment and regimen; N25.0 Renal osteodystrophy; F14.188 Cocaine abuse with other cocaine-induced disorder
CPT/HCPCS: 36415; 71045-TC; 80048-TC; 83735-TC; 84100-TC; 84484-TC; 85025-TC; 86706; 87081-TC; 87340; 90935-TC; G0378; J0360; J2997

== ENCOUNTER 2021-10-22 18:57 | Inpatient (IN) | payer MEDICAID, OTHER ==
[~2021-10-22] VITALS: Ht 160 cm; Wt 56.7 kg
[~2021-10-22 18:57] MED LIST changes: -ASPI-1152 PO; +ASPI-1420 PO; +LISI40TA13 PO; -LISI40TA4 PO
--- NOTE | 2021-10-22 19:05 | NUR ---
ER BED 7 - BIBRA 88 FROM HOME C/O UNWITNESSED SYNCOPAL EPISODE. +LAC ON THE R EYE BROW. ADMIT TO SMOKING CRACK TODAY PER EMS. PT STATING SOB. PLACED ON MONITOR
--- NOTE | 2021-10-22 20:18 | NUR ---
PT RETURNED TO ER BED [address]
[2021-10-22] MEDS ORDERED: LORAZEPAM INJ 2 MG/ML VIAL ONE (20:27)
[2021-10-22] MEDS ORDERED: LORAZEPAM INJ 2 MG/ML VIAL IM ONE (20:30)
[2021-10-22 20:34] LABS: BASOPHILS # (AUTO) 0.1 K/uL (0.0-0.2); EOSINOPHILS % (AUTO) 1.8 % (0.0-6.0); HEMATOCRIT 24 % (33-45); LYMPHOCYTES # (AUTO) 1.5 K/uL (0.8-4.8); LYMPHOCYTES % (AUTO) 18.1 % (20.0-44.0); MEAN CORPUSCULAR HGB CONC 33 g/dl (31.0-36.0); MEAN CORPUSCULAR VOLUME 91 fL (82-100); MONOCYTES # (AUTO) 0.8 K/uL (0.1-1.30); MONOCYTES % (AUTO) 10.3 % (2.0-12.0); NEUTROPHILS # (AUTO) 5.6 K/uL (1.8-8.9); NEUTROPHILS % (AUTO) 68.8 % (43.0-81.0); PLATELET COUNT (AUTO) 249 K/uL (150-450); RED BLOOD CELL COUNT(AUTO) 2.67 MIL/uL (4.0-5.2); WHITE BLOOD COUNT (AUTO) 8.2 K/uL (4.3-11.0)
[2021-10-22 20:38] LABS: CALCIUM, SERUM 7.8 mg/dL (8.5-10.1); CARBON DIOXIDE 22 mmol/L (21-32); CHLORIDE 96 mmol/L (98-107); GLUCOSE 110 mg/dL (74-106); POTASSIUM 6.1 mmol/L (3.5-5.1); SODIUM SERUM 136 mmol/L (136-145); UREA NITROGEN, BLOOD 74 mg/dL (7-18)
[2021-10-22 20:46] LABS: CREATININE 14.1 mg/dL (0.6-1.3)
--- NOTE | 2021-10-22 20:47 | NUR ---
CRITICAL LAB: CREATININE 14.1
--- NOTE | 2021-10-22 20:48 | NUR ---
CRITICAL LAB: TROPONIN 51. AWARE
[2021-10-22 20:49] LABS: MAGNESIUM 2.5 mg/dL (1.8-2.4)
[2021-10-22 21:01] LABS: BILIRUBIN,URINE NEGATIVE (NEGATIVE); COLOR,URINE YELLOW (YELLOW); LEUKOCYTE ESTERASE ,URINE TRACE (NEGATIVE); NITRITE, URINE NEGATIVE (NEGATIVE); PH,URINE 8.5 (5.0-8.0); PROTEIN,URINE >=300 mg/dl (NEGATIVE); UGLUCOSE 100 MG/DL mg/dL (NEGATIVE); UROBILINOGEN,URINE 0.2 EU/dL (0.2)
[2021-10-22 21:09] LABS: BACTERIA,URINE 1+ /HPF (None Seen)
[2021-10-22 21:27] LABS: LYMPHOCYTES % (MANUAL) 22 % (16-48); MONOCYTES % (MANUAL) 10 % (0-11.0); NEUTROPHILS % (MANUAL) 68 (42-76)
[2021-10-22] MEDS ORDERED: FUROSEMIDE 40 MG/4 ML VIAL IV ONE ×2 (21:30→23:00)
[2021-10-22] MEDS ORDERED: NITROGLYCERIN PACKET 1 GM PACKET TOP ONE (21:30)
--- NOTE | 2021-10-22 21:45 | NUR ---
COVID SWAB COLLECTED AND SENT TO LAB
--- NOTE | 2021-10-22 21:45 | NUR ---
R WRIST 24G IV ESTABLISHED
[2021-10-22] MEDS ORDERED: FUROSEMIDE 40 MG/4 ML VIAL ONE (21:47)
[2021-10-22] MEDS ORDERED: NITROGLYCERIN PACKET 1 GM PACKET ONE (21:47)
--- NOTE | 2021-10-22 22:09 | NUR ---
MRSA SWAB COLLECTED AND SENT TO LAB. PATIENT'S BELONGINGS LIST DONE.
[2021-10-22] MEDS ORDERED: DEXTROSE 50%-WATER 50 ML DISP.SYRIN ONE (22:24)
[2021-10-22] MEDS ORDERED: SODIUM POLYSTYRENE SULFONATE 15 G/60 ML BOTTLE ONE (22:24)
[2021-10-22] MEDS ORDERED: SODIUM BICARBONATE SYR 50 MEQ/50 ML DISP.SYRIN ONE (22:24)
[2021-10-22] MEDS ORDERED: Calcium Gluconate 0.465 MEQ/ML VIAL IV ONE (22:24)
[2021-10-22] MEDS ORDERED: hydrALAZINE HCL IV 20 MG VIAL ONE (22:24)
[2021-10-22] MEDS ORDERED: INSULIN REGULAR, HUMAN 100 UNIT/ML 10 ML VIAL ONE (22:25)
[2021-10-22] MEDS ORDERED: Z GUARD REMEDY 4 OZ OINT TP PRN (22:30)
[2021-10-22] MEDS ORDERED: ACETAMINOPHEN 325 MG TABLET PO PRN (22:30)
[2021-10-22] MEDS ORDERED: ACETAMINOPHEN ES 500 MG TABLET PO PRN (22:30)
[2021-10-22] MEDS ORDERED: SODIUM BICARBONATE SYR 50 MEQ/50 ML DISP.SYRIN IV ONE ×2 (22:30)
[2021-10-22] MEDS ORDERED: ONDANSETRON HCL/PF 4 MG/2 ML VIAL IVP PRN (22:30)
[2021-10-22] MEDS ORDERED: INSULIN REGULAR, HUMAN 100 UNIT/ML 10 ML VIAL IV ONE (22:30)
[2021-10-22] MEDS ORDERED: DEXTROSE 50%-WATER 50 ML DISP.SYRIN IV ONE (22:30)
[2021-10-22] MEDS ORDERED: hydrALAZINE HCL IV 20 MG VIAL IV PRN (22:30)
[2021-10-22] MEDS ORDERED: Calcium Gluconate 1GM/10ML 9.3 MEQ in IV D5W 250 ML IV ONE (22:30)
[2021-10-22] MEDS ORDERED: TDAP [DIPH/PERTUSSIS/TET] 0.5 ML VIAL IM ONE ×2 (22:30→23:03)
[2021-10-22] MEDS ORDERED: MAGNESIUM HYDROXIDE 30 ML UDC PO PRN (22:30)
[2021-10-22] MEDS ORDERED: MAG HYDROX/AL HYDROX/SIMETH 30 ML UDC PO PRN (22:30)
[2021-10-22] MEDS ORDERED: hydrALAZINE HCL IV 20 MG VIAL IV ONE (22:30)
[2021-10-22] MEDS ORDERED: ALBUTEROL FS 2.5 MG/3 ML VIAL.NEB NEB PRN (22:30)
[2021-10-22] MEDS ORDERED: ZOLPIDEM TARTRATE 5 MG TABLET PO PRN (22:30)
[2021-10-22] MEDS ORDERED: SODIUM POLYSTYRENE SULFONATE 15 G/60 ML BOTTLE PO ONE (22:30)
[2021-10-22 23:30] VITALS: BP 261/153
--- NOTE | 2021-10-22 23:30 | NUR ---
[facility] RN NOTE ADMITTED 51 YR OLD -HUNGARIAN FEMALE FROM ER, DX OF FLUID OVERLOAD SECONDARY TO ESRD BY KAELA MUNOZ IT SUPPORT SPECIALIST, PT IS LETHARGIC ON O2 15L VIA NON REBREATHER MASK, O2 SATURATION 96%. NOTE PT WITH SOB, KEPT HEAD OF BED ELEVATED. PT IS ALSO TRYING TO KICK RECEIVED NEW ORDERS OF RESTRAINTS B SOFT WRIST FROM KAELA MUNOZ WHICH APPLIED TO KEEP PT SAFE. PT HAS L FOREARM ACCESS IS INFILTRATED WHICH HAPPEN IN ER. PT BP AT THIS TIME IS 261/153, HR WAS 128. ASK THE ER NURSE LORETTA ABOUT THE HYDRALAZIME IV PUSH WAS GIVEN OR NOT,ACCORDING TO HIM HE WAS NOT SURE BECAUSE IV SITE BECOMES INFILTRATED. UNABLE TO CHECK SKIN ASSESSMENT BY THIS TIME DUE TO PT CRITICAL CONDITION. INFORMED THE NURSING EMT B REGARDING HIGH BP AND NO IV ACCESS. PER ER LISA, THE IV NURSE IS ON HIS WAY. AND SO DOES HEMODIALYSIS NURSE. SIDE RAILS UP X3, CALL LIGHT WITHIN REACH, CONTINUE TO MONITOR V/S AND SAFETY.
--- NOTE | 2021-10-22 23:37 | NUR ---
PT TRANSFERRED TO [facility] VIA ACLS PROTOCOL
[2021-10-22 23:43] VITALS: BP 223/146
--- NOTE | 2021-10-22 23:50 | NUR ---
[facility] RN NOTE ED THE CHARGE NURSE FROM ICU CAME TO INSERT THE IV BUT UNABLE TO ACCESS X2, WILL WAIT FOR LISA TO COME ALSO NOTIFIED KAELA MUNOZ
--- NOTE | 2021-10-23 | NUR ---
[facility] RN NOTE DIALYSIS NURSE ARRIVE AND STARTED THE DIALYSIS ORDERED
--- NOTE | 2021-10-23 00:07 | NUR ---
RN NOTE NOTIFIED VICE CHAIR DOCTOR KAELA MUNOZ CHEESE FACTORY WORKER ABOUT ABG RESULTS: PH 7.127, PCO2 73.5 MMHG, PO2 102.1 MMHG, HCO3-ACT 23.7 MMOL/L, BE(B) -6.0 MMOL/L
[2021-10-23 00:11] LABS: CALCIUM, SERUM 7.9 mg/dL (8.5-10.1); POTASSIUM 4.9 mmol/L (3.5-5.1)
--- NOTE | 2021-10-23 00:12 | NUR ---
[facility] RN NOTE PT NOTED DIAPHORETIC, BLOOD SUGAR CHECKED, 112 MG/DL. ALSO STAT ABG DONE DUE TO RESPIRATORY DISTRESS. Addendum: 10/23/21 at 0059 by NIK GRIFFITH RN RESULT SHOWN TO LONI BRONSON NEW ORDER
[2021-10-23 00:16] LABS: CREATININE 14.2 mg/dL (0.6-1.3)
[2021-10-23 00:19] VITALS: BP 204/114
--- NOTE | 2021-10-23 00:21 | NUR ---
[facility] RN NOTE REVERIFIED CALCIUM GLUCONATE ORDER, SODIUM BICARB ORDER AND LASIX ORDER. PER KAELA HOLD LASIX. ORDER NOTED AND CARRIED OUT.
[2021-10-23 00:30] VITALS: BP 180/109
--- NOTE | 2021-10-23 00:30 | NUR ---
[facility] RN NOTE SODIUM BICARD 1AMP OF 50 MEQ IV PUSH GIVEN ALSO STARTED CALCIUM GLUCONATE 270 ML PER HR. STARTED AT L UPPER ARM MIDLINE. NOTED BP WAS COMING DOWN TO 180/109, WILL CONTINUE TO MONITOR.
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
--- NOTE | 2021-10-23 02:07 | NUR ---
[facility] RN NOTE DIALYSIS NURSE YELLED CALLING FOR NURSEHELP BECAUSE THE PT IS NOT BREATHING DURING DIALYSIS. . PRABHA, RN WENT INSIDE AND NOTED PT WITH NO RESPIRATION. RIGHT AWAY A CHARGE NURSE WENT IN AND ANNOUNCE GINNA GOLDMAN AND BEGIN CPR. CODE BLUE TEAM ARRIVED AND TOOK OVER. AT 02:22 KAELA CAME AND SHE PRONOUNCE PT .
[2021-10-23] MEDS ORDERED: Calcium Gluconate 0.465 MEQ/ML VIAL IV ONE (02:20)
--- NOTE | 2021-10-23 04:00 | NUR ---
[facility] RN NOTE [employer] INFORMED
--- NOTE | 2021-10-23 05:00 | NUR ---
[facility] RN NOTE CORNERS OFFICE INFORMED AND RECEIVED CASE #, THEY WILL STRIP MINE SUPERVISOR THE BODY. LEFT A MESSAGE ON THE GIVEN # BUT NO ONE ANSWERED. POST MORTEM CARE DONE, ENDORSED THE BODY TO THE SECURITY.
[2021-10-23] MEDS ORDERED: CALCIUM CHLORIDE 1,000 MG/10 ML DISP.SYRIN IV ONE (05:23)
[2021-10-23] MEDS ORDERED: DEXTROSE 50%-WATER 50 ML DISP.SYRIN IV ONE (05:23)
[2021-10-23] MEDS ORDERED: EPINEPHRINE (1:10,000) SYRINGE 1 MG/10 ML DISP.SYRIN IVP ONE (05:23)
[2021-10-23] MEDS ORDERED: SODIUM BICARBONATE SYR 50 MEQ/50 ML DISP.SYRIN IV ONE (05:23)
[2021-10-23] MEDS ORDERED: SEVELAMER CARBONATE 800 MG TABLET PO SCH (08:00)
[2021-10-23] MEDS ORDERED: FERROUS SULFATE (325 MG) 325 MG/TAB TABLET PO SCH (09:00)
[2021-10-23] MEDS ORDERED: ASPIRIN EC 81 MG TABLET.DR PO SCH (09:00)
[2021-10-23] MEDS ORDERED: ATORVASTATIN 40 MG TABLET PO SCH (09:00)
[2021-10-23] MEDS ORDERED: LISINOPRIL (20MG) 20 MG TABLET PO SCH (09:00)
[2021-10-23] MEDS ORDERED: QUETIAPINE FUMARATE 100 MG TABLET PO SCH (09:00)
[2021-10-23] MEDS ORDERED: GABAPENTIN 100 MG CAPSULE PO SCH (09:00)
[2021-10-23] MEDS ORDERED: CHOLECALCIFEROL 1,000 UNIT TABLET (VIT D3) PO SCH (09:00)
[2021-10-23] MEDS ORDERED: MULTIVITAMINS,THERAGRAN 1 UDTAB TABLET PO SCH (09:00)
[2021-10-23] MEDS ORDERED: NIFEdipine XL (30MG) 30 MG TAB PO SCH (09:00)
[2021-10-28] MEDS ORDERED: CLONIDINE HCL 0.3 MG/24H PTWK 1 EA PATCH TD SCH (09:00)
== END 2021-10-23 05:24 | DRG 194 ==
LOC: ER 18:59 → TELE1 23:00 → TELE-TD 10-23 00:41
PROVIDERS: ADMIT Nurse Practitioner Acute Care; ATTEND Nurse Practitioner Acute Care
PROC: 05HA33Z Insertion of Infusion Device into Left Brachial Vein, Percutaneous Approach (ICD-10-PCS; principal; 2021-10-22)
PROC: 5A2204Z Restoration of Cardiac Rhythm, Single (ICD-10-PCS; 2021-10-23)
DX: I13.2 Hypertensive heart and chronic kidney disease with heart failure and with stage 5 chronic kidney disease, or end stage renal disease (principal); G92.8 Other toxic encephalopathy; I21.A1 Myocardial infarction type 2; E87.2 Acidosis; D63.8 Anemia in other chronic diseases classified elsewhere; F29 Unspecified psychosis not due to a substance or known physiological condition; N18.6 End stage renal disease; I16.0 Hypertensive urgency; I50.33 Acute on chronic diastolic (congestive) heart failure; I50.84 End stage heart failure; Z99.2 Dependence on renal dialysis; Z91.15 Patient's noncompliance with renal dialysis; Z20.822 Contact with and (suspected) exposure to COVID-19; E78.5 Hyperlipidemia, unspecified; F14.90 Cocaine use, unspecified, uncomplicated; J44.9 Chronic obstructive pulmonary disease, unspecified; Z79.899 Other long term (current) drug therapy; Z79.82 Long term (current) use of aspirin; Z91.19 Patient's noncompliance with other medical treatment and regimen; I25.10 Atherosclerotic heart disease of native coronary artery without angina pectoris; E87.5 Hyperkalemia; Z59.00 Homelessness unspecified
CPT/HCPCS: 36415; 71045-TC; 80048-TC; 81001; 82962-TC; 83605-TC; 83735-TC; 84484-TC; 84702-TC; 85025-TC; 87040-TC; 87081-TC; 90715; G0378; J0171; J0360; J0610; J1815; J1940; J2060; J3490; J7030; J7060